=== PATIENT | male | born 1980 | race Two or more races ===

== ENCOUNTER 2024-05-11 08:51 | Outpatient (CLI) | payer OTHER | END 2024-05-11 09:04 | disposition home or self-care (01) | LOC: TOM 08:51 | PROVIDERS: ATTEND Internal Medicine Hematology & Oncology | DX: Z79.01 Long term (current) use of anticoagulants (principal); R07.1 Chest pain on breathing | CPT/HCPCS: 71270; Q9965; 71275; 74175 ==